=== PATIENT | male | born 1975 | race Caucasian/White ===

== ENCOUNTER 2021-10-02 11:58 | Emergency (ER) | payer OTHER ==
[2021-10-02 13:32] LABS: HEMOGLOBIN 17.4 gm/dl (14.0-17.5); RED BLOOD COUNT 5.51 M/UL (4.20-5.50); WHITE BLOOD COUNT 8.4 K/UL (4.5-11.0)
[2021-10-02 13:56] LABS: BUN/CREATININE RATIO 14 (0-10)
== END 2021-10-03 09:30 | disposition short-term general hospital (02) ==
LOC: ER1 11:58
PROVIDERS: Emergency Medicine
DX: N17.9 Acute kidney failure, unspecified (principal); N13.6 Pyonephrosis; Z20.822 Contact with and (suspected) exposure to COVID-19
CPT/HCPCS: 80053; 81001; 82550; 82553; 83605; 83874; 84484; 85025; 87040; 87086; 93005; 96374; 96375; 96376; 99285; J0696; J2270; J2405; J7030; U0002

== ENCOUNTER → 2021-12-30 | Outpatient (CLI) | payer OTHER | LOC: US 12-29 17:15 → ECHO 10:00 → MRI 11:00 | DX: H90.3 Sensorineural hearing loss, bilateral (principal); I65.29 Occlusion and stenosis of unspecified carotid artery; R94.31 Abnormal electrocardiogram [ECG] [EKG]; I08.1 Rheumatic disorders of both mitral and tricuspid valves | CPT/HCPCS: ECHO; 36415; 70553; 82565; 93306; 93880; A9577 ==

== ENCOUNTER → 2022-01-24 | Outpatient (CLI) | payer OTHER ==
[2022-01-24 09:39] LABS: HEMOGLOBIN 15.9 gm/dl (14.0-17.5); RED BLOOD COUNT 5.08 M/UL (4.20-5.50); WHITE BLOOD COUNT 6.7 K/UL (4.5-11.0)
== END ==
LOC: LAB 08:35
PROVIDERS: Family Medicine
DX: R94.4 Abnormal results of kidney function studies (principal); F32.A Depression, unspecified; I10 Essential (primary) hypertension
CPT/HCPCS: 36415; 80053; 80061; 81001; 82570; 83735; 84156; 84443; 85027; 87086